=== PATIENT | female | born 2000 | race Two or more races ===

== ENCOUNTER 2022-03-07 07:09 | Outpatient (CLI) | payer OTHER | END 2022-03-07 07:11 | disposition home or self-care (01) | LOC: LAB 07:09 | DX: J11.1 Influenza due to unidentified influenza virus with other respiratory manifestations (principal); Z20.828 Contact with and (suspected) exposure to other viral communicable diseases; Z20.822 Contact with and (suspected) exposure to COVID-19 ==

== ENCOUNTER 2023-01-19 07:54 | Emergency (ER) | payer OTHER ==
[~2023-01-19] VITALS: Ht 152.4 cm; Wt 54.4 kg
[2023-01-19 09:06] LABS: HEMATOCRIT 43.1 % (36.0-45.00); HEMOGLOBIN 14.5 g/dL (12.0-15.00); MEAN CORPUSCULAR HEMOGLOBIN 30.5 pg (27.00-32.0); MEAN CORPUSCULAR HGB CONC 33.5 g/dl (32.0-36.0); PLATELET COUNT 225 K/uL (150-450); RED BLOOD COUNT 4.74 M/uL (4.00-6.00); RED CELL DISTRIBUTION WIDTH 13.6 % (11.5-14.5)
[2023-01-19 09:39] LABS: ALBUMIN 4.8 gm/dL (3.4-5.0); BILIRUBIN TOTAL 3.16 mg/dL (0.3-1.2); CALCIUM 9.8 mg/dL (8.5-10.1); CREATININE SERUM 1.08 mg/dL (0.55-1.02); GFR 64.68; GLOBULINA 4.1 G/DL (2.4-3.5); POTASSIUM 3.82 mEq/L (3.5-5.1); TOTAL PROTEIN 8.9 gm/dL (6.4-8.2)
== END 2023-01-19 14:20 | disposition home or self-care (01) ==
LOC: EMR PED 07:54 → ER 07:54 → EMR PED 10:12
PROVIDERS: Emergency Medicine Pediatric Emergency Medicine
DX: K52.9 Noninfective gastroenteritis and colitis, unspecified (principal); E86.0 Dehydration; R10.9 Unspecified abdominal pain

== ENCOUNTER 2023-04-20 11:43 | Emergency (ER) | payer OTHER ==
[~2023-04-20] VITALS: Ht 152.4 cm; Wt 52.2 kg
== END 2023-04-20 13:07 | disposition home or self-care (01) ==
LOC: ER 11:44 → EMR PED 11:45
DX: J03.90 Acute tonsillitis, unspecified (principal)

== ENCOUNTER 2023-10-25 18:53 | Emergency (ER) | payer OTHER ==
[~2023-10-25] VITALS: Ht 152.4 cm; Wt 51.7 kg
[~2023-10-25 18:53] MED LIST: INTESTINEX680 M1 PO; ONDANSETRON ODT8 MG PO; PEPCID40 MG PO
[2023-10-25] MEDS ORDERED: ZYRTEC10 M3 PO (20:47)
[2023-10-25] MEDS ORDERED: LIDOCAINE HCL 4% Topic SOLUTION TOP STA (20:54)
[2023-10-25] MEDS ORDERED: KETOROLAC TROMETHAMINE 30 MG VIAL IM ONE (21:00)
== END 2023-10-25 21:39 | disposition home or self-care (01) ==
LOC: ER 18:54 → EMR PED 19:18
DX: J32.9 Chronic sinusitis, unspecified (principal); H66.90 Otitis media, unspecified, unspecified ear

== ENCOUNTER 2024-02-07 09:12 | Outpatient (CLI) | payer OTHER ==
[~2024-02-07 09:12] MED LIST changes: +ZYRTEC10 M3 PO
== END 2024-02-07 09:38 | disposition home or self-care (01) ==
LOC: SONOGRAMA 09:12
DX: N64.59 Other signs and symptoms in breast (principal)

== ENCOUNTER 2024-07-17 03:32 | Inpatient (IN) | payer OTHER ==
[~2024-07-17] VITALS: Ht 152.4 cm; Wt 54.4 kg
--- NOTE | 2024-07-17 03:52 | NUR ---
REFIERE QUE HOY COMENZO CON DOLOR ABDOMINAL, NAUSEAS, GASES Y VOMITOS X 4.
[2024-07-17] MEDS ORDERED: MORPHINE SULFATE 4 MG/ML VIAL IV STA (04:32)
[2024-07-17] MEDS ORDERED: FAMOTIDINE/PF 20 MG/2 ML VIAL IV PUSH STA (04:32)
[2024-07-17] MEDS ORDERED: PROMETHAZINE HCL 50 MG/ML AMPUL IM STA (04:33)
[2024-07-17] MEDS ORDERED: RINGERS SOLUTION,LACTATED 1,000 ML IV ONE (04:45)
[2024-07-17] MEDS ORDERED: FAMOTIDINE/PF 20 MG/2 ML VIAL ONE (05:18)
[2024-07-17] MEDS ORDERED: PROMETHAZINE HCL 50 MG/ML AMPUL IM ONE (05:18)
--- NOTE | 2024-07-17 05:30 | NUR ---
RN WEEKS EDUCA A PACIENTE SOBRE PROCESO DE ADAM DE MUESTRAS, CANALIZACION Y ADMINISTRACION DE MEDICAMENTOS, REFIERE ENTENDER. SE EJECUTAN ORDENES BAJO MEDIDAS ASEPTICAS.
[2024-07-17 06:19] LABS: HEMATOCRIT 38.4 % (36.0-45.00); HEMOGLOBIN 12.9 g/dL (12.0-15.00); MEAN CELL VOLUME 90.4 fL (80.00-100.00); MEAN CORPUSCULAR HEMOGLOBIN 30.5 pg (27.00-32.0); MEAN CORPUSCULAR HGB CONC 33.7 g/dl (32.0-36.0); PLATELET COUNT 229 K/uL (150-450); RED BLOOD COUNT 4.25 M/uL (4.00-6.00); RED CELL DISTRIBUTION WIDTH 13.5 % (11.5-14.5)
[2024-07-17 06:41] LABS: INR 1.03; PARTIAL THROMBOPLASTIN TIME 23.6 SECONDS (22.0-34.0); PROTHROMBIN TIME 11.2 SECONDS (9.0-11.5)
[2024-07-17 06:57] LABS: ALBUMIN 4.2 gm/dL (3.4-5.0); BILIRUBIN TOTAL 1.1 mg/dL (0.3-1.2); BILIRUBIN,CONJUGATED 0.25 mg/dL (0.0-0.2); BILIRUBIN,UNCONJUGATED 0.85 mg/dL (0.0-0.6); CALCIUM 9.2 mg/dL (8.5-10.1); CREATININE SERUM 0.82 mg/dL (0.55-1.02); GLOBULINA 3.5 G/DL (2.4-3.5); POTASSIUM 3.43 mEq/L (3.5-5.1); TOTAL PROTEIN 7.7 gm/dL (6.4-8.2)
--- NOTE | 2024-07-17 07:14 | NUR ---
PACIENTE ALERTA Y ORIENTADO X3 EN COMPANIA DE FAMILIAR , SE OPSERVA CANALIZACION PATENTE Y KATHY DE EDEMA.PACIENTE EN ESPERA DE RESUSTADO.
[2024-07-17] MEDS ORDERED: HYOSCYAMINE SULFATE 0.125 MG TAB.SUBL ONE (07:41)
[2024-07-17] MEDS ORDERED: HYOSCYAMINE SULFATE 0.125 MG TAB.SUBL SL STA (07:41)
[2024-07-17 11:05] LABS: PH,URINE 6.5 (5.0-8.0); URINE APPEARANCE Cloudy; URINE BILIRRUBIN Negative (NEGATIVE); URINE BLOOD Large; URINE COLOR Yellow; URINE GLUCOSE Negative (NEGATIVE); URINE KETONE Trace (NEGATIVE); URINE LEUKOCYTE Trace; URINE NITRATE Negative; URINE PROTEIN Trace (NEGATIVE)
[2024-07-17 11:11] LABS: URINE BACTERIA 5739.3 uL (0.0-1933); URINE EPITHELIAL CELLS 56.4 uL (0.0-38.8); URINE RBC 138.4 uL (0.0-20.8); URINE WBC 40.8 uL (0.0-23.2)
[2024-07-17 11:14] LABS: URINE CAST 0.29 uL (0.0-1.40)
[2024-07-17] MEDS ORDERED: KETOROLAC TROMETHAMINE 30 MG VIAL ONE ×2 (11:28→19:23)
[2024-07-17] MEDS ORDERED: TAMSULOSIN HCL 0.4 MG CAP PO ONE ×2 (11:28→11:30)
[2024-07-17] MEDS ORDERED: KETOROLAC TROMETHAMINE 30 MG VIAL IV ONE (11:30)
[2024-07-17] MEDS ORDERED: CEFTRIAXONE SODIUM 1,000 MG VIAL IV ONE (11:30)
[2024-07-17] MEDS ORDERED: 0.9 % SODIUM CHLORIDE 1,000 ML IV SCH (18:30)
[2024-07-17] MEDS ORDERED: CEFTRIAXONE SODIUM 2,000 MG in 0.9 % SODIUM CHLORIDE 100 ML IV SCH (18:36)
[2024-07-17] MEDS ORDERED: FAMOTIDINE/PF 20 MG in 0.9 % SODIUM CHLORIDE 8 ML IV PUSH SCH (18:37)
[2024-07-17] MEDS ORDERED: TAMSULOSIN HCL 0.4 MG CAP PO SCH (18:39)
[2024-07-17] MEDS ORDERED: ACETAMINOPHEN 500 MG GEL..CAP PO PRN (18:45)
[2024-07-17] MEDS ORDERED: KETOROLAC TROMETHAMINE 30 MG VIAL IU ONE (18:45)
[2024-07-17] MEDS ORDERED: KETOROLAC TROMETHAMINE 15 MG VIAL IV PRN (18:45)
[2024-07-17] MEDS ORDERED: CEFTRIAXONE SODIUM 1,000 MG VIAL ONE (19:24)
[2024-07-17] MEDS ORDERED: KETOROLAC TROMETHAMINE 30 MG VIAL IV PRN (20:15)
[2024-07-17 20:34] LABS: INR 1.06; PARTIAL THROMBOPLASTIN TIME 27.9 SECONDS (22.0-34.0); PROTHROMBIN TIME 11.5 SECONDS (9.0-11.5)
[2024-07-17 22:37] VITALS: BP 105/71; O2SAT 98
[2024-07-18] VITALS: BP 107/67; O2SAT 99
[2024-07-18] MEDS ORDERED: 0.9 % SODIUM CHLORIDE 10 ML VIAL IJ ONE (08:44)
[2024-07-18 10:44] VITALS: BP 104/68
[2024-07-18 17:43] VITALS: BP 122/85
[2024-07-18 18:29] VITALS: BP 122/85
[2024-07-19 02:02] VITALS: BP 95/58; O2SAT 97
[2024-07-19 08:44] LABS: HEMATOCRIT 31.9 % (36.0-45.00); HEMOGLOBIN 11.2 g/dL (12.0-15.00); MEAN CELL VOLUME 90.1 fL (80.00-100.00); MEAN CORPUSCULAR HEMOGLOBIN 31.6 pg (27.00-32.0); MEAN CORPUSCULAR HGB CONC 35.1 g/dl (32.0-36.0); PLATELET COUNT 160 K/uL (150-450); RED BLOOD COUNT 3.54 M/uL (4.00-6.00); RED CELL DISTRIBUTION WIDTH 13.7 % (11.5-14.5)
[2024-07-19 09:14] LABS: ALBUMIN 3.3 gm/dL (3.4-5.0); BILIRUBIN TOTAL 1.17 mg/dL (0.3-1.2); CREATININE SERUM 1.12 mg/dL (0.55-1.02); GFR 61.41; GLOBULINA 2.7 G/DL (2.4-3.5); POTASSIUM 3.84 mEq/L (3.5-5.1)
[2024-07-19 10:27] VITALS: BP 104/69; O2SAT 100
[2024-07-19 17:04] VITALS: BP 137/80; O2SAT 97
[2024-07-20 00:11] VITALS: BP 132/80; O2SAT 99
[2024-07-20 08:09] VITALS: BP 113/73
[2024-07-20] MEDS ORDERED: ONDANSETRON HCL 2 MG/ML VIAL IV PRN (09:45)
[2024-07-20 17:10] VITALS: BP 110/65
[2024-07-21 00:33] VITALS: BP 119/81; O2SAT 97
[2024-07-21 08:23] VITALS: BP 117/72
[2024-07-21] MEDS ORDERED: FUROsemide 20 MG/2 ML VIAL IV NR (14:00)
[2024-07-21 16:59] LABS: CREATININE SERUM 1.2 mg/dL (0.55-1.02); GFR 56.71; POTASSIUM 3.96 mEq/L (3.5-5.1)
[2024-07-21 18:26] VITALS: BP 111/71
[2024-07-21] MEDS ORDERED: FAMOtidine 20 MG TABLET PO SCH (21:00)
[2024-07-22 02:18] VITALS: BP 107/72; O2SAT 98
[2024-07-22 08:23] LABS: CREATININE SERUM 1.1 mg/dL (0.55-1.02); GFR 62.7; POTASSIUM 3.98 mEq/L (3.5-5.1)
[2024-07-22 09:30] VITALS: BP 114/66; O2SAT 99
== END 2024-07-22 15:31 | disposition home or self-care (01) | DRG 872 ==
LOC: ER 03:33 → MEDJ 18:56
PROVIDERS: General Practice; Internal Medicine; ADMIT Student in an Organized Health Care Education/Training Program; ATTEND Student in an Organized Health Care Education/Training Program
PROC: BW40ZZZ Ultrasonography of Abdomen (ICD-10-PCS; principal; 2024-07-17)
PROC: BW21ZZZ Computerized Tomography (CT Scan) of Abdomen and Pelvis (ICD-10-PCS; 2024-07-17)
PROC: BW21ZZZ Computerized Tomography (CT Scan) of Abdomen and Pelvis (ICD-10-PCS; 2024-07-20)
DX: A41.9 Sepsis, unspecified organism (principal); N39.0 Urinary tract infection, site not specified; N12 Tubulo-interstitial nephritis, not specified as acute or chronic; R65.10 Systemic inflammatory response syndrome (SIRS) of non-infectious origin without acute organ dysfunction; N20.0 Calculus of kidney

== ENCOUNTER 2024-11-22 08:16 | Outpatient (CLI) | payer OTHER ==
[2024-11-22 10:07] LABS: URINE APPEARANCE Cloudy; URINE BILIRRUBIN Negative (NEGATIVE); URINE COLOR Yellow; URINE GLUCOSE Negative (NEGATIVE); URINE LEUKOCYTE Small; URINE NITRATE Negative; URINE PROTEIN Trace (NEGATIVE); URINE UROBILINOGEN 1.0 E.U./dl
[2024-11-22 10:07] LABS: MONO # 0.35 (0.24-0.82); RED CELL DISTRIBUTION WIDTH 12.5 % (11.6-14.4)
[2024-11-22 10:10] LABS: BASO % 0.6 % (0.1-1.2); EOS # 0.09 (0.04-0.54); EOS % 1.8 % (0.7-7.0); LYMPH # 1.56 (1.18-3.74); LYMPH % 32.0 % (19.3-53.1); MEAN PLATELET VOLUME 12.20 fl (9.4-12.4); MONO % 7.2 % (4.7-12.5); NEUT # 2.83 (1.56-6.13); NEUT % 58.2 % (34.0-71.1)
[2024-11-22 10:14] LABS: URINE EPITHELIAL CELLS 149.5 uL (0.0-38.8); URINE RBC 9.8 uL (0.0-20.8); URINE WBC 132.1 uL (0.0-23.2)
[2024-11-22 10:33] LABS: URINE BACTERIA > 9821.5 uL (0.0-1933); URINE BLOOD TRACE; URINE CAST 0.87 uL (0.0-1.40); URINE KETONE 40 (NEGATIVE)
[2024-11-22 10:39] LABS: URINE YEAST NEGATIVE /hpf
[2024-11-22 10:43] LABS: ALT/SGPT 15.0 U/L (12-78); AST/SGOT 8.0 U/L (15-37); BILIRUBIN TOTAL 2.66 mg/dL (0.3-1.2); BUN CREA RATIO 17.0 (7.0-25.0); CREATININE SERUM 0.69 mg/dL (0.55-1.02); GFR 107.4; GLOBULINA 3.2 G/DL (2.4-3.5); GLUCOSE FASTING 71.0 mg/dL (65-100); OSMOLALITY SERUM 281.0 MOSM/KG (275-295)
== END 2024-11-22 08:17 | disposition home or self-care (01) ==
LOC: LAB 08:16
PROVIDERS: ATTEND Internal Medicine
DX: N30.00 Acute cystitis without hematuria (principal); N39.0 Urinary tract infection, site not specified; R74.8 Abnormal levels of other serum enzymes; R10.13 Epigastric pain; R12 Heartburn; K29.00 Acute gastritis without bleeding; K44.9 Diaphragmatic hernia without obstruction or gangrene

== ENCOUNTER → 2024-12-12 07:18 | Outpatient (CLI) | payer OTHER | END | disposition home or self-care (01) | LOC: SONOGRAMA 07:18 | PROVIDERS: ATTEND Internal Medicine | DX: R74.8 Abnormal levels of other serum enzymes (principal); K76.0 Fatty (change of) liver, not elsewhere classified; R10.13 Epigastric pain; R10.11 Right upper quadrant pain ==